=== PATIENT | female | born 2000 | race Two or more races ===

== ENCOUNTER → 2024-08-03 | Outpatient (CLI) | payer MEDICAID ==
[2024-08-03 14:11] LABS: Basophils # (auto) 0 10 ^3/uL (0-0.2); Basophils % (auto) 0.5 % (0.0-2.0); Eosinophils # (auto) 0.1 10 ^3/uL (0-0.8); Eosinophils % (auto) 1.5 % (0.0-7.0); Hematocrit 44.8 % (36.0-46.0); Hemoglobin 15.1 g/dL (12.2-16.2); Lymphocytes # (auto) 1.5 10 ^3/uL (0.4-5.4); Lymphocytes % (auto) 26.4 % (10.0-50.0); Mean Corpuscular Hemoglobin 30.1 pg (28.0-32.0); Mean Corpuscular Hgb Conc. 33.7 g/dL (32.0-36.0); Mean Corpuscular Volume 89.1 fL (80.0-100.0); Monocytes # (auto) 0.4 10 ^3/uL (0-1.3); Monocytes % (auto) 6.7 % (0.0-12.0); Neutrophils # (auto) 3.6 10 ^3/uL (1.6-8.6); Neutrophils % (auto) 64.9 % (37.0-80.0); Nucleated Red Blood Cells % 0.1 %; Platelet Count (auto) 288 10^3/uL (140-450); Red Blood Cells 5.03 10^6/uL (4.0-5.20); Red Cell Distribution Width 12.8 % (11.8-14.3); White Blood Cell 5.6 10^3/uL (4.4-10.8)
[2024-08-03 14:42] LABS: Alanine Aminotransferase 37 U/L (7-40); Albumin 5.2 g/dL (3.2-4.8); Alkaline Phosphatase 95 U/L (46-116); Anion Gap 9 (5-15); Aspartate Aminotransferase 23 U/L (13-40); BUN/Creatinine Ratio 13.3 (10.0-20.0); Blood Urea Nitrogen 10 mg/dL (9-23); Calcium 10.3 mg/dL (8.7-10.4); Carbon Dioxide 26 mmol/L (20-31); Chloride 103 mmol/L (98-107); Cholesterol 187 mg/dL (< 200); Glucose 92 mg/dL (74-106); HDL Cholesterol 51 mg/dL (40-59); LDL Cholesterol 121 mg/dL (< 100); Potassium 3.9 mmol/L (3.5-5.1); Sodium 138 mmol/L (136-145); Total Protein 8.1 g/dL (5.7-8.2); Triglycerides 166 mg/dL (< 150)
[2024-08-04 10:06] LABS: RPR Non Reactive (Non Reactive)
[2024-08-04 10:08] LABS: Hepatitis B Core Total AB Negative (Negative)
[2024-08-04 12:15] LABS: Hepatitis A Total Antibody Positive (Negative); Hepatitis B Surface Antibody Positive (Negative)
[2024-08-04 12:16] LABS: Hepatitis B Surface Antigen Negative (Negative); Hepatitis C Antibody Negative (Negative)
== END | disposition home or self-care (01) ==
LOC: LAB 13:22
PROVIDERS: ATTEND Licensed Practical Nurse
DX: Z00.01 Encounter for general adult medical examination with abnormal findings (principal); Z11.3 Encounter for screening for infections with a predominantly sexual mode of transmission; Z13.220 Encounter for screening for lipoid disorders; Z13.29 Encounter for screening for other suspected endocrine disorder; E55.9 Vitamin D deficiency, unspecified
CPT/HCPCS: 36415; 80053; 80061; 82306; 82607; 83036; 84443; 85025; 86592; 86703; 86704; 86706; 86708; 86803; 87340